=== PATIENT | male | born 1960 | race Asian ===

== ENCOUNTER 2017-01-28 02:25 | Emergency (ER) | payer MEDICAID, OTHER ==
[~2017-01-28] VITALS: Ht 175.3 cm; Wt 57.6 kg
[2017-01-28 02:40] VITALS: BP_SYST 159; BP_SYST 163; BP_DIAS 105; BP_DIAS 113
[2017-01-28] MEDS ORDERED: STRIBILD TABLE1 EACH PO (02:54)
--- NOTE | 2017-01-28 03:03 | Emergency Room Report ---
History of Present Illness General Chief Complaint: Medication Refill Source: Patient Present Illness HPI This is a 57-year-old male who said he has a history of HIV. Unknown viral load. Said his CD4 count is low. He is out of his HIV medicine for over a month. He does not have a primary care Dr. No fever chills but no nausea no vomiting. He can't explain why he could not followup with his HIV doctor. Patient has no other complaint. No fever or chills. No nausea vomiting. Allergies: Coded Allergies: No Known Allergies (Unverified , 01/28/17) Patient History Past Medical History: see triage record, old chart reviewed, HIV Past Surgical History: other Pertinent Family History: none Social History: Reports: smoking Immunizations: other Reviewed Nursing Documentation: PMH: Agreed, PSxH: Agreed Nursing Documentation-PMH Past Medical History: No History, Except For Hx Hypertension: Yes Hx Asthma: Yes Hx COPD: Yes Hx Neurological Problems: Yes Review of Systems Eye: Denies: blurred vision, eye pain ENT: Denies: ear pain, nose congestion, throat swelling Respiratory: Denies: cough, shortness of breath Cardiovascular: Denies: chest pain, palpitations Gastrointestinal: Denies: abdominal pain, diarrhea, nausea, vomiting Musculoskeletal: Denies: back pain, joint pain Skin: Denies: rash Neurological: Denies: headache, numbness Endocrine: Denies: increased thirst, increased urine Hematologic/Lymphatic: Denies: easy bruising All Other Systems: negative except mentioned in HPI Physical Exam Vital Signs Date Time Temp Pulse Resp B/P Pulse Ox O2 Delivery O2 Flow Rate FiO2 01/28/17 02:37 97.9 84 16 159/113 99 Room Air vitals with hypertension Sp02 EP Interpretation: reviewed, normal General Appearance: well appearing, no apparent distress, alert Head: normocephalic, atraumatic Eyes: bilateral eye EOMI, bilateral eye PERRL ENT: hearing grossly normal, normal pharynx Neck: full range of motion, supple, no meningismus Respiratory: chest non-tender, lungs clear, normal breath sounds Cardiovascular #1: regular rate, rhythm, no murmur Gastrointestinal: normal bowel sounds, non tender, no mass, no organomegaly, no bruit, non-distended Musculoskeletal: back normal, gait/station normal, normal range of motion Psychiatric: mood/affect normal Skin: warm/dry Medical Decision Making Diagnostic Impression: Primary Impression: Encounter for medication refill ER Course This is a that he is HIV and knee his HIV medication. He does not know the dose. Explained to the patient that I do not refill HIV medication. He need to see an HIV Dr. for refill. This is to decrease the risks of resistance. Also there is a big black market for HIV medication. Since patient doesn't know his oral load or CD4 count or dosing of his medication, hold off on giving the medication that he wants. I will refer him to the [facility] health [facility] for followup and testing. They can prescribe him medication there. This can be done at low or no cost. Last Vital Signs Date Time Temp Pulse Resp B/P Pulse Ox O2 Delivery O2 Flow Rate FiO2 01/28/17 02:37 97.9 84 16 159/113 99 Room Air Status: unchanged Disposition: HOME, SELF-CARE Condition: Stable Referrals: NOT CHOSEN IPA/MD,REFERRING (PCP) Patient Instructions: Medicine Refill at the Emergency Department Additional Instructions: followup at [facility] within a week. Return if symptom worsen. RACHEL BARRON M.D. Jan 28, 2017 03:03
== END 2017-01-28 03:00 | disposition home or self-care (01) ==
LOC: EMR 02:57
DX: Z76.0 Encounter for issue of repeat prescription (principal); B20 Human immunodeficiency virus [HIV] disease; J44.9 Chronic obstructive pulmonary disease, unspecified; I10 Essential (primary) hypertension; F17.200 Nicotine dependence, unspecified, uncomplicated
CPT/HCPCS: 99282